=== PATIENT | female | born 1960 | race Hispanic/Latino ===

== ENCOUNTER 2018-08-24 19:13 | Observation (INO) | payer OTHER ==
[2018-08-24 21:06] LABS: BASO # 0.1 K/uL (0.0-0.2); BASO % 0.6 % (0.0-2.0); EOS # 0.4 K/uL (0.0-0.7); EOS % 4.3 % (0.0-4.0); HEMOGLOBIN 13.6 g/dL (12.0-16.0); LYMPH # 1.6 K/uL (1.0-4.3); LYMPH % 15.8 % (20.0-40.0); MEAN CELL VOLUME 85.8 fl (81.0-99.0); MEAN CORPUSCULAR HEMOGLOBIN 28.9 pg (27.0-31.0); MEAN CORPUSCULAR HGB CONC 33.7 g/dL (33.0-37.0); MEAN PLATELET VOLUME 8.6 fl (7.2-11.7); MONO # 0.9 K/uL (0.0-0.8); MONO % 8.4 % (0.0-10.0); NEUT # 7.3 K/uL (1.8-7.0); NEUT % 70.9 % (50.0-75.0); NRBC % 0.1 % (0.0-0.0); RBC 4.7 Mil/uL (3.80-5.20); RED CELL DISTRIBUTION WIDTH 13.1 % (11.5-14.5); WHITE BLOOD COUNT 10.3 K/uL (4.8-10.8)
[2018-08-24 21:11] LABS: PROTHROMBIN TIME 11.9 Seconds (9.8-13.1)
[2018-08-24 21:14] LABS: PARTIAL THROMBOPLASTIN TIME 36.3 Seconds (25.6-37.1)
[2018-08-24 21:17] LABS: ALB/GLOB RATIO 1.7 (1.0-2.1); ALBUMIN 4.7 g/dL (3.5-5.0); ALT/SGPT 27 U/L (9-52); AST/SGOT 30 U/L (14-36); BLOOD UREA NITROGEN 20 mg/dl (7-17); CALCIUM 9.5 mg/dL (8.4-10.2); GFR NON-AFRICAN AMERICAN > 60
--- NOTE | 2018-08-24 21:33 | ED PDOC ---
HPI: CCC, URI, Sore Throat Time Seen by Provider: 08/24/18 19:25 Chief Complaint (Nursing): ENT Problem Chief Complaint (Provider): ENT Problem History Per: Patient History/Exam Limitations: no limitations Onset/Duration Of Symptoms: Days Current Symptoms Are (Timing): Still Present Location Of Pain: Throat Additional Complaint(s): 58 y/o female with no significant PMHx presents to the ED for evaluation of throat pain and feeling of something stuck in throat. Patient states she was eating a hot dog at around 1 PM today and began having some throat discomfort or feeling as if something was stuck there. Patient notes of having tried drinking water and small bits of food to help it go down. Patient reports of having 20 episodes of dry heaving since that time with minimal amounts of fluid and saliva. Patient denies actual emesis. Just upon arrival to the ED, patient took a couple of sips of water that has stayed down. At this time, patient is now reporting of nausea. Patient notes he has had similar episodes in 2018 that required an endoscopy and retrieval of meat but was not told of any esophageal stricture or ideology. PMD: Homero Dodson. Past Medical History Reviewed: Historical Data, Nursing Documentation, Vital Signs Vital Signs: Last Vital Signs Temp 100.1 F H 08/24/18 19:17 Pulse 100 H 08/24/18 19:17 Resp 18 08/24/18 19:17 BP 160/107 H 08/24/18 19:17 Pulse Ox 99 08/24/18 19:17 Primary Care Provider: Homero Dodson - Medical History PMH: No Chronic Diseases - Surgical History Surgical History: No Surg Hx - Family History Family History: States: No Known Family Hx - Allergies Allergies/Adverse Reactions: Allergies Allergy/AdvReac Type Severity Reaction Status Date / Time No Known Allergies Allergy Verified 08/24/18 19:18 Review of Systems ROS Statement: Except As Marked, All Systems Reviewed And Found Negative ENT: Positive for: Throat Pain Physical Exam - Reviewed Nursing Documentation Reviewed: Yes Vital Signs Reviewed: Yes - Physical Exam Appears: Positive for: No Acute Distress ENT: Positive for: Normal ENT Inspection. Negative for: Pharyngeal Erythema, Tonsillar Exudate, Tonsillar Swelling Neck: Positive for: Normal, Painless ROM, Supple Cardiovascular/Chest: Positive for: Regular Rate, Rhythm. Negative for: Murmur Respiratory: Positive for: Normal Breath Sounds. Negative for: Respiratory Distress Gastrointestinal/Abdominal: Positive for: Normal Exam, Soft. Negative for: Tenderness Neurological/Psych: Positive for: Awake, Alert, Oriented (x3). Negative for: Motor/Sensory Deficits - Laboratory Results Result Diagrams: 08/24/18 20:54 08/24/18 20:54 Lab Results: PT 11.9 Seconds (9.8-13.1) 08/24/18 20:54 INR 1.0 08/24/18 20:54 APTT 36.3 Seconds (25.6-37.1) 08/24/18 20:54 Total Bilirubin 0.6 mg/dl (0.2-1.3) 08/24/18 20:54 AST 30 U/L (14-36) 08/24/18 20:54 ALT 27 U/L (9-52) 08/24/18 20:54 Alkaline Phosphatase 94 U/L (38-126) 08/24/18 20:54 Total Protein 7.5 G/DL (6.3-8.2) 08/24/18 20:54 Albumin 4.7 g/dL (3.5-5.0) 08/24/18 20:54 Globulin 2.8 gm/dL (2.2-3.9) 08/24/18 20:54 Albumin/Globulin Ratio 1.7 (1.0-2.1) 08/24/18 20:54 - ECG O2 Sat by Pulse Oximetry: 99 (RA) Pulse Ox Interpretation: Normal Medical Decision Making Medical Decision Making: Time: 2043 Impression: Throat Pain Plan: -- Dr. De La Garza, GI consulted who reviewed case and advised zofran and small sips of water. If patient is able to tolerate, she would not have a complete obstruction and discharge to follow up as outpatient. Patient to be re-evaluated and Dr. De La Garza to be contacted again. -- Nursing Communication (sips of water as PO challenge) -- Zofran 4 mg IVP -- IV Insertion 22:15: pt re-evaluated, she has been able to drink a couple more sips of water. Nausea has improved but continued to feel "something" in her stomach. Pt offered pain medication but currently refusing. Will re-evaluate. 23:00: Dr. De La Garza made aware of patient's ability to drink 16oz of water. He requested that patient be given applesauce. 00:00: re-evaluated; pt ate 1 small applesauce but feels food lodged in chest and currently nauseous. Dr. De La Garza made aware and patient to be admitted ufor endoscopy tomorrow morning. Patient made NPO. Zofran 4mg IV x 1. NS 1L IV at 75mL/hour. 00:20: Case discussed with Byron Worthy who accepts admission for dysphagia. Scribe Attestation: Documented by Nadeem Romero, acting as a scribe Eli Vallejo PA-C. Provider Scribe Attestation: All medical record entries made by the Scribe were at my direction and personally dictated by me. I have reviewed the chart and agree that the record accurately reflects my personal performance of the history, physical exam, medical decision making, and the department course for this patient. I have also personally directed, reviewed, and agree with the discharge instructions and disposition. Disposition - Clinical Impression Clinical Impression: Dysphagia - Patient ED Disposition Is Patient to be Admitted: Yes Discussed With Dr.: Byron Worthy Doctor Will See Patient In The: Hospital Counseled Patient/Family Regarding: Diagnosis - Disposition Disposition: Transfer of Care Disposition Time: 00:20 Condition: FAIR
[2018-08-25] MEDS ORDERED: Sodium Chloride 0.9% 1,000 ML IV STA (00:11)
[2018-08-25] MEDS ORDERED: Etomidate 20 mg/10ml Inj IV ONE (10:27)
[2018-08-25] MEDS ORDERED: Propofol 10 mg/ml Inj (20 ML) ONE (10:28)
--- NOTE | 2018-08-25 10:29 | CP.PCM.CON ---
History of Present Illness - History of Present Illness History of Present Illness: 58 yo female admitted after having difficulty swallowing and throat pain. Started Saturday about 13 00 and initially had problem swallowing saliva. In the ER was able to drink liquids but not soft food. Similar problem year ago and at that time food was found in lower esophagus. She states she was eating a hot dog when this started and was rushing so may not have chewed properly. Review of Systems - Constitutional Constitutional: absent: Chills - EENT Eyes: absent: Blurred Vision Ears: absent: Decreased Hearing Nose/Mouth/Throat: absent: Nasal Congestion - Cardiovascular Cardiovascular: absent: Chest Pain - Respiratory Respiratory: absent: Cough - Gastrointestinal Gastrointestinal: absent: Abdominal Pain - Genitourinary Genitourinary: absent: Change in Urinary Stream Past Patient History - Past Medical History & Family History Past Medical History?: Yes - Past Social History Smoking Status: Former Smoker - CARDIAC Hx Cardiac Disorders: No Hx Hypercholesterolemia: No (denies hx) Hx Hypertension: No (denies hx) - PULMONARY Hx Respiratory Disorders: No - NEUROLOGICAL Hx Neurological Disorder: No - HEENT Hx HEENT Problems: Yes Other/Comment: eye glasses - RENAL Hx Chronic Kidney Disease: No - ENDOCRINE/METABOLIC Hx Endocrine Disorders: No Hx Diabetes Mellitus Type 2: No - HEMATOLOGICAL/ONCOLOGICAL Hx Blood Disorders: No Hx AIDS: No Hx Human Immunodeficiency Virus (HIV): No - INTEGUMENTARY Hx Dermatological Problems: No - MUSCULOSKELETAL/RHEUMATOLOGICAL Hx Musculoskeletal Disorders: Yes Hx Back Pain: Yes (reports hx of lumbar surgery after work injury) Hx Falls: No - GASTROINTESTINAL Hx Gastrointestinal Disorders: Yes HX Swallowing Problems: Yes (December 2017 after eating a piece of meat) - GENITOURINARY/GYNECOLOGICAL Hx Genitourinary Disorders: No - PSYCHIATRIC Hx Psychophysiologic Disorder: No Hx Substance Use: No - SURGICAL HISTORY Hx Surgeries: Yes Hx Section: Yes (1999) Hx Musculoskeletal Surgery: Yes (Lumbar surgery 10/23/17 & Cervical disc surg 04/17/17 all due to work injury) Other/Comment: Endoscopy Dec 2017. foot surgery L 1990 - ANESTHESIA Hx Anesthesia: Yes Hx Anesthesia Reactions: No Meds Allergies/Adverse Reactions: Allergies Allergy/AdvReac Type Severity Reaction Status Date / Time No Known Allergies Allergy Verified 08/24/18 19:18 - Medications Medications: Current Medications Famotidine (Pepcid) 20 mg IVP Q12 BACILIO Last Admin: 08/25/18 08:53 Dose: 20 mg Sodium Chloride (Sodium Chloride 0.9%) 1,000 mls @ 75 mls/hr IV .[id number] STA Stop: 08/25/18 13:30 Last Admin: 08/25/18 01:54 Dose: 75 mls/hr Ketorolac Tromethamine (Toradol) 30 mg IVP Q6 PRN PRN Reason: Pain, moderate (4-7) Last Admin: 08/25/18 06:43 Dose: 30 mg Ondansetron HCl (Zofran Inj) 4 mg IVP Q6 PRN PRN Reason: Nausea/Vomiting Physical Exam - Constitutional Appears: No Acute Distress - Head Exam Head Exam: ATRAUMATIC - Eye Exam Eye Exam: Normal appearance Pupil Exam: PERRL - Respiratory Exam Respiratory Exam: Clear to Auscultation Bilateral - Cardiovascular Exam Cardiovascular Exam: REGULAR RHYTHM, +S1, +S2 - GI/Abdominal Exam GI & Abdominal Exam: Normal Bowel Sounds, Soft. absent: Tenderness - Extremities Exam Extremities exam: Positive for: normal inspection Results - Vital Signs Recent Vital Signs: Last Vital Signs Temp 97.8 F 08/25/18 08:34 Pulse 60 08/25/18 08:34 Resp 20 08/25/18 08:34 BP 114/66 08/25/18 08:34 Pulse Ox 95 08/25/18 08:34 - Labs Result Diagrams: 08/24/18 20:54 08/24/18 20:54 Labs: Laboratory Results - last 24 hr 08/24/18 08/24/18 08/24/18 20:54 20:54 20:54 WBC 10.3 RBC 4.70 Hgb 13.6 Hct 40.4 MCV 85.8 MCH 28.9 MCHC 33.7 RDW 13.1 Plt Count 268 MPV 8.6 Neut % (Auto) 70.9 Lymph % (Auto) 15.8 L [place] % (Auto) 8.4 Eos % (Auto) 4.3 H Baso % (Auto) 0.6 Neut # (Auto) 7.3 H Lymph # (Auto) 1.6 [place] # (Auto) 0.9 H Eos # (Auto) 0.4 Baso # (Auto) 0.1 PT 11.9 INR 1.0 APTT 36.3 Sodium 140 Potassium 3.9 Chloride 104 Carbon Dioxide 25 Anion Gap 15 BUN 20 H Creatinine 0.6 L Est GFR ( Amer) > 60 Est GFR (Non-Af Amer) > 60 Random Glucose 100 Calcium 9.5 Total Bilirubin 0.6 AST 30 ALT 27 Alkaline Phosphatase 94 Total Protein 7.5 Albumin 4.7 Globulin 2.8 Albumin/Globulin Ratio 1.7 Assessment & Plan (1) Dysphagia Assessment and Plan: Difficulty swallowing persists in patient with pvevious food impaction. For upper endoscopy today. Status: Acute
[2018-08-25] MEDS ORDERED: Lactated Ringer's 500 ML IV ONE (10:40)
--- NOTE | 2018-08-25 10:56 | CP.PCM.HP ---
History of Present Illness - History of Present Illness History of Present Illness: Having difficulty swallowing since yesterday after having sensation of food getting stuck while swallowing alcohol. Past h/o cervical and lumbar issues. No other chronic medical problems. Present on Admission - Present on Admission Any Indicators Present on Admission: No History of Uncontrolled Diabetes: No Urinary Catheter: No Decubitus Ulcer Present: No History Surgical Site Infection Following: None Review of Systems - Constitutional Constitutional: absent: Chills - EENT Eyes: absent: Blind Spots Ears: absent: Ear Discharge Nose/Mouth/Throat: absent: Epistaxis - Breasts Breasts: absent: Mass - Cardiovascular Cardiovascular: absent: Chest Pain - Respiratory Respiratory: absent: Cough - Gastrointestinal Gastrointestinal: absent: Dysphagia - Genitourinary Genitourinary: absent: Urinary Frequency - Musculoskeletal Musculoskeletal: absent: Abnormal Gait Past Patient History - Past Medical History & Family History Past Medical History?: Yes - Past Social History Smoking Status: Former Smoker - CARDIAC Hx Cardiac Disorders: No Hx Hypercholesterolemia: No (denies hx) Hx Hypertension: No (denies hx) - PULMONARY Hx Respiratory Disorders: No - NEUROLOGICAL Hx Neurological Disorder: No - HEENT Hx HEENT Problems: Yes Other/Comment: eye glasses - RENAL Hx Chronic Kidney Disease: No - ENDOCRINE/METABOLIC Hx Endocrine Disorders: No Hx Diabetes Mellitus Type 2: No - HEMATOLOGICAL/ONCOLOGICAL Hx Blood Disorders: No Hx AIDS: No Hx Human Immunodeficiency Virus (HIV): No - INTEGUMENTARY Hx Dermatological Problems: No - MUSCULOSKELETAL/RHEUMATOLOGICAL Hx Musculoskeletal Disorders: Yes Hx Back Pain: Yes (reports hx of lumbar surgery after work injury) Hx Falls: No - GASTROINTESTINAL Hx Gastrointestinal Disorders: Yes HX Swallowing Problems: Yes (December 2017 after eating a piece of meat) - GENITOURINARY/GYNECOLOGICAL Hx Genitourinary Disorders: No - PSYCHIATRIC Hx Psychophysiologic Disorder: No Hx Substance Use: No - SURGICAL HISTORY Hx Surgeries: Yes Hx Section: Yes (1999) Hx Musculoskeletal Surgery: Yes (Lumbar surgery 10/23/17 & Cervical disc surg 04/17/17 all due to work injury) Other/Comment: Endoscopy Dec 2017. foot surgery L 1990 - ANESTHESIA Hx Anesthesia: Yes Hx Anesthesia Reactions: No Meds Allergies/Adverse Reactions: Allergies Allergy/AdvReac Type Severity Reaction Status Date / Time No Known Allergies Allergy Verified 08/24/18 19:18 Physical Exam - Constitutional Appears: No Acute Distress - Head Exam Head Exam: ATRAUMATIC - Eye Exam Eye Exam: Normal appearance - ENT Exam ENT Exam: Normal Exam - Neck Exam Neck exam: Positive for: Normal Inspection - Respiratory Exam Respiratory Exam: Clear to Auscultation Bilateral - Cardiovascular Exam Cardiovascular Exam: REGULAR RHYTHM - GI/Abdominal Exam GI & Abdominal Exam: Normal Bowel Sounds, Soft. absent: Tenderness - Extremities Exam Extremities exam: Positive for: normal inspection Results - Vital Signs Recent Vital Signs: Last Vital Signs Temp 97.8 F 08/25/18 08:34 Pulse 60 08/25/18 08:34 Resp 20 08/25/18 08:34 BP 114/66 08/25/18 08:34 Pulse Ox 95 08/25/18 08:34 - Labs Result Diagrams: 08/24/18 20:54 08/24/18 20:54 Labs: Laboratory Results - last 24 hr 08/24/18 08/24/18 08/24/18 20:54 20:54 20:54 WBC 10.3 RBC 4.70 Hgb 13.6 Hct 40.4 MCV 85.8 MCH 28.9 MCHC 33.7 RDW 13.1 Plt Count 268 MPV 8.6 Neut % (Auto) 70.9 Lymph % (Auto) 15.8 L [place] % (Auto) 8.4 Eos % (Auto) 4.3 H Baso % (Auto) 0.6 Neut # (Auto) 7.3 H Lymph # (Auto) 1.6 [place] # (Auto) 0.9 H Eos # (Auto) 0.4 Baso # (Auto) 0.1 PT 11.9 INR 1.0 APTT 36.3 Sodium 140 Potassium 3.9 Chloride 104 Carbon Dioxide 25 Anion Gap 15 BUN 20 H Creatinine 0.6 L Est GFR ( Amer) > 60 Est GFR (Non-Af Amer) > 60 Random Glucose 100 Calcium 9.5 Total Bilirubin 0.6 AST 30 ALT 27 Alkaline Phosphatase 94 Total Protein 7.5 Albumin 4.7 Globulin 2.8 Albumin/Globulin Ratio 1.7 Assessment & Plan (1) Dysphagia Assessment and Plan: New onset dyhagia. R/o food impaction. For upper endoscopy. Otherwise well. Status: Acute
--- NOTE | 2018-08-25 11:15 | CP.PCM.PN ---
Subjective - Date & Time of Evaluation Date of Evaluation: 08/25/18 Time of Evaluation: 11:13 - Subjective Subjective: Upper endoscopy showed no food but severe esophagitis. Objective - Vital Signs/Intake and Output Vital Signs (last 24 hours): Temp Pulse Resp BP Pulse Ox 97.9 F 61 14 114/65 97 08/25/18 10:56 08/25/18 10:56 08/25/18 10:56 08/25/18 10:56 08/25/18 10:56 Intake and Output: 08/25/18 08/25/18 06:59 18:59 Intake Total 200 Balance 200 - Medications Medications: Current Medications Sodium Chloride (Sodium Chloride 0.9%) 1,000 mls @ 75 mls/hr IV .[id number] STA Stop: 08/25/18 13:30 Last Admin: 08/25/18 01:54 Dose: 75 mls/hr Ketorolac Tromethamine (Toradol) 30 mg IVP Q6 PRN PRN Reason: Pain, moderate (4-7) Last Admin: 08/25/18 06:43 Dose: 30 mg Ondansetron HCl (Zofran Inj) 4 mg IVP Q6 PRN PRN Reason: Nausea/Vomiting Pantoprazole Sodium (Protonix Ec Tab) 40 mg PO BID BACILIO - Labs Labs: 08/24/18 20:54 08/24/18 20:54 PT 11.9 Seconds (9.8-13.1) 08/24/18 20:54 INR 1.0 08/24/18 20:54 APTT 36.3 Seconds (25.6-37.1) 08/24/18 20:54 - Head Exam Head Exam: ATRAUMATIC - Eye Exam Eye Exam: Normal appearance - ENT Exam ENT Exam: Normal Exam - Neck Exam Neck Exam: Normal Inspection - Respiratory Exam Respiratory Exam: NORMAL BREATHING PATTERN - Cardiovascular Exam Cardiovascular Exam: REGULAR RHYTHM - GI/Abdominal Exam GI & Abdominal Exam: Soft, Normal Bowel Sounds Assessment and Plan (1) Dysphagia Assessment & Plan: Patient found to have hiatal hernia and erosive esophagitis. [place] diet. PPI sent to pharmacy. May be discharged. Status: Acute
[2018-08-25] MEDS ORDERED: Lactated Ringer's 500 ML IV SCH (11:30)
[2018-08-25] MEDS ORDERED: Pantoprazole 40 mg EC Tab PO SCH (11:30)
[2018-08-25 13:10] VITALS: RESP 18
--- NOTE | 2018-08-25 13:33 | HP ---
HISTORY OF PRESENT ILLNESS: The patient admitted for dysphagia, possible foreign body obstruction in the esophagus after eating some foods that she was rushing to eat . This happened about six months ago as well. At the time of this eval, the patient has already had her endoscopy with Dr. De La Garza GI, who states there is no foreign body, no food bolus obstruction and the patient had significant esophagitis. The patient is resting in ICU for postoperative care without any complaints. No fever, chills, nausea, vomiting, diarrhea. Lab work and imaging reviewed. REVIEW OF SYSTEMS: Nausea, epigastrium discomfort. PHYSICAL EXAMINATION: CONSTITUTIONAL: Awake, alert, oriented. HEENT: Normal. CARDIAC: S1, S2. Regular rate and rhythm. No murmurs, rubs, or gallops. LUNGS: Clear in all amor bilaterally. ABDOMEN: Soft, nontender. Bowel sounds x4. EXTREMITIES: Distal PMS is intact. Cap refill is brisk. DIAGNOSIS AND PLAN: Esophagitis. No food bolus obstruction noted on endoscopy. We will send the patient home after she tolerates p.o. and cleared by Gastroenterology with Protonix and Zofran. Advised to chew food completely, follow with her primary medical doctor, outpatient Gastroenterology followup. Deep venous thrombosis prophylaxis, sequential compression devices and A-hose. ALBER Montero VIANEY
[2018-08-25 16:09] VITALS: BP 112/72; PULSE 62; TEMP 99; O2SAT 95
--- NOTE | 2018-08-27 10:08 | CP.PCM.DIS ---
Provider - Provider Date of Admission: 08/25/18 00:18 Attending physician: Maite Gonzalez MD Consults: 08/25/18 00:17 Gastroenterology Consult Stat Comment: Consulting Provider: Terry Nguyen Consulting Physician: Terry Nguyen Reason for Consult: dysphagia Time Spent in preparation of Discharge (in minutes): 15 Hospital Course - Lab Results Lab Results: Most Recent Lab Values WBC 10.3 K/uL (4.8-10.8) 08/24/18 20:54 RBC 4.70 Mil/uL (3.80-5.20) 08/24/18 20:54 Hgb 13.6 g/dL (12.0-16.0) 08/24/18 20:54 Hct 40.4 % (34.0-47.0) 08/24/18 20:54 MCV 85.8 fl (81.0-99.0) 08/24/18 20:54 MCH 28.9 pg (27.0-31.0) 08/24/18 20:54 MCHC 33.7 g/dL (33.0-37.0) 08/24/18 20:54 RDW 13.1 % (11.5-14.5) 08/24/18 20:54 Plt Count 268 K/uL (130-400) 08/24/18 20:54 MPV 8.6 fl (7.2-11.7) 08/24/18 20:54 Neut % (Auto) 70.9 % (50.0-75.0) 08/24/18 20:54 Lymph % (Auto) 15.8 % (20.0-40.0) L 08/24/18 20:54 [place] % (Auto) 8.4 % (0.0-10.0) 08/24/18 20:54 Eos % (Auto) 4.3 % (0.0-4.0) H 08/24/18 20:54 Baso % (Auto) 0.6 % (0.0-2.0) 08/24/18 20:54 Neut # (Auto) 7.3 K/uL (1.8-7.0) H 08/24/18 20:54 Lymph # (Auto) 1.6 K/uL (1.0-4.3) 08/24/18 20:54 [place] # (Auto) 0.9 K/uL (0.0-0.8) H 08/24/18 20:54 Eos # (Auto) 0.4 K/uL (0.0-0.7) 08/24/18 20:54 Baso # (Auto) 0.1 K/uL (0.0-0.2) 08/24/18 20:54 PT 11.9 Seconds (9.8-13.1) 08/24/18 20:54 INR 1.0 08/24/18 20:54 APTT 36.3 Seconds (25.6-37.1) 08/24/18 20:54 Sodium 140 mmol/l (132-148) 08/24/18 20:54 Potassium 3.9 MMOL/L (3.6-5.0) 08/24/18 20:54 Chloride 104 mmol/L (98-107) 08/24/18 20:54 Carbon Dioxide 25 mmol/L (22-30) 08/24/18 20:54 Anion Gap 15 (10-20) 08/24/18 20:54 BUN 20 mg/dl (7-17) H 08/24/18 20:54 Creatinine 0.6 mg/dl (0.7-1.2) L 08/24/18 20:54 Est GFR ( Amer) > 60 08/24/18 20:54 Est GFR (Non-Af Amer) > 60 08/24/18 20:54 Random Glucose 100 mg/dL (65-105) 08/24/18 20:54 Calcium 9.5 mg/dL (8.4-10.2) 08/24/18 20:54 Total Bilirubin 0.6 mg/dl (0.2-1.3) 08/24/18 20:54 AST 30 U/L (14-36) 08/24/18 20:54 ALT 27 U/L (9-52) 08/24/18 20:54 Alkaline Phosphatase 94 U/L (38-126) 08/24/18 20:54 Total Protein 7.5 G/DL (6.3-8.2) 08/24/18 20:54 Albumin 4.7 g/dL (3.5-5.0) 08/24/18 20:54 Globulin 2.8 gm/dL (2.2-3.9) 08/24/18 20:54 Albumin/Globulin Ratio 1.7 (1.0-2.1) 08/24/18 20:54 - Hospital Course Hospital Course: pt admitted for r/o impacted food bolus. had egd w/ dr nguyen w/o bolus found, esophogitis on egd Discharge Exam - Head Exam Head Exam: ATRAUMATIC Discharge Plan - Discharge Medications Prescriptions: Ondansetron ODT [Zofran ODT] 4 mg PO Q8 #20 odt Pantoprazole [Protonix EC Tab] 40 mg PO BID #60 ect - Follow Up Plan Condition: FAIR Disposition: HOME/ ROUTINE Instructions: Dysphagia, Acid Reflux (Gastroesophageal Reflux Disease), Adult (DC) Additional Instructions: Follow up Dr. Gonzalez clinic in a.m final dx-esophogitis small meals, thorough chewing. ppi f/u rmg, rted prn, meds per emd rec outpt gi f/u Referrals: Maite Gonzalez MD [Staff Provider] - Terry Copeland MD [Medical Doctor] -
== END 2018-08-25 16:50 | disposition home or self-care (01) ==
LOC: H.ER 19:13 → H.ERHOLD 08-25 00:18 → H.MEDSURG1 08-25 02:17
PROVIDERS: ADMIT Family Medicine; ATTEND Family Medicine
DX: K22.10 Ulcer of esophagus without bleeding (principal); K44.9 Diaphragmatic hernia without obstruction or gangrene; Z87.891 Personal history of nicotine dependence; K31.89 Other diseases of stomach and duodenum
CPT/HCPCS: 43235; 80053; 85025; 85610; 85730; 96374; 99284; G0378; J1885; J2001; J2405; J2704; J7030; J7120